=== PATIENT | female | born 1950 | race American Indian/Alaskan Native ===

== ENCOUNTER 2018-03-20 13:17 | Emergency (ER) | payer OTHER, MEDICARE ==
[2018-03-20] MEDS ORDERED: TORADOL IM ONE (16:46)
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
--- NOTE | 2018-03-20 18:49 | XRay Report ---
FINAL REPORT PROCEDURE: XR SHOULDER 2+V RT TECHNIQUE: Right shoulder, four views HISTORY: right shoulder pain COMPARISON: No prior studies are available for comparison. FINDINGS: No fracture or dislocation is seen. No focal osseous lesions. There are mild glenohumeral and acromio clavicular joint osteoarthritic changes IMPRESSION: No fracture is identified
--- NOTE | 2018-03-20 18:51 | XRay Report ---
FINAL REPORT PROCEDURE: XR SPINE LUMBOSACRAL 2-3V TECHNIQUE: Lumbosacral spine, three views HISTORY: low back pain COMPARISON: No prior studies are available for comparison. FINDINGS: No scoliosis. There are degenerative disc changes of the lower lumbar spine and facet arthritic sanon es, most severe at L5-S1. The vertebral body heights and alignment are maintained. IMPRESSION: Significant degenerative disc and facet arthritic changes at L5-S1
--- NOTE | 2018-03-20 18:52 | XRay Report ---
FINAL REPORT PROCEDURE: XR KNEE 3V RT TECHNIQUE: Right knee, four views HISTORY: right knee pain COMPARISON: No prior studies are available for comparison. FINDINGS: There are tricompartmental osteoarthritic changes, with joint space narrowing and osteophyte formatio n. No fracture or joint dislocation is seen. No joint effusion. IMPRESSION: No acute fracture or dislocation is seen. Osteoarthritis
--- NOTE | 2018-03-20 18:55 | XRay Report ---
FINAL REPORT PROCEDURE: XR SPINE CERVICAL 2-3V TECHNIQUE: Cervical spine, AP and lateral views HISTORY: neck pain COMPARISON: No prior studies are available for comparison. FINDINGS: Lower cervical spine is not evaluated due to overlying structures. There are multilevel degenerative disc changes. Prevertebral soft tissues are within normal limits in thickness. Visualized vertebra de monstrate normal vertebral body heights and alignment. IMPRESSION: No acute osseous abnormality is seen. Lower cervical spine is not fully evaluated
[2018-03-20 19:30] VITALS: BP 105/54
== END 2018-03-20 19:28 | disposition home or self-care (01) ==
LOC: ED 13:17
DX: S46.911A Strain of unspecified muscle, fascia and tendon at shoulder and upper arm level, right arm, initial encounter (principal); S76.911A Strain of unspecified muscles, fascia and tendons at thigh level, right thigh, initial encounter; S16.1XXA Strain of muscle, fascia and tendon at neck level, initial encounter; M15.0 Primary generalized (osteo)arthritis; I10 Essential (primary) hypertension; E11.9 Type 2 diabetes mellitus without complications; F17.200 Nicotine dependence, unspecified, uncomplicated; Z88.0 Allergy status to penicillin; Z79.82 Long term (current) use of aspirin; V89.2XXA Person injured in unspecified motor-vehicle accident, traffic, initial encounter; Y93.89 Activity, other specified; Y92.488 Other paved roadways as the place of occurrence of the external cause; Y99.8 Other external cause status
CPT/HCPCS: 72040; 72100; 73030; 73562; 96372; 99284; J1885